=== PATIENT | male | born 1985 | race Caucasian/White ===

== ENCOUNTER 2016-05-23 09:58 | Emergency (ER) | payer BC ==
[2016-05-23] MEDS ORDERED: NITROGLYCERIN 0.4 MG 25 EA TAB SL ONE (10:13)
[2016-05-23] MEDS ORDERED: ASPIRIN TABLET 325 MG TAB PO ONE (10:13)
[2016-05-23] MEDS ORDERED: SODIUM CHLORIDE 0.9% (FLUSH) 10 ML SYG IV PRN (10:13)
--- NOTE | 2016-05-23 10:13 | ED.PDOC ---
History of Present Illness - General Chief Complaint: Cardiovascular Problem Stated Complaint: palpitations Time Seen by Provider: 05/23/16 10:12 Source: patient Exam Limitations: no limitations - History of Present Illness Initial Comments: Mr. Suraj Edge 30 y/o male no chronic medical condition stated that after eating lunch yesterday rested and about to go back to work experienced that he had a fast heartbeat then later had left sided sharp pain with numbness on his left arm and soreness on his shoulders lasting for about several hours and pain on his chest went away but still feels numbness on left arm. Timing/Duration: 24 hours, resolved prior to arrival Severity: moderate Location: other - left side chest Activities at Onset: rest Prior Chest Pain/Cardiac Workup: no prior chest pain, no prior cardiac workup Improving Factors: nothing Worsening Factors: nothing Nitro Today/Relief: no nitro taken today, provided by ED Aspirin Treatment Today: no aspirin today, 325 mg x 1 Associated Symptoms: chest pain, other - numbness left arm Allergies/Adverse Reactions: Allergies NO KNOWN ALLERGY Allergy (Unverified 06/21/13 09:00) Home Medications: Ambulatory Orders Magnesium Oxide (mg Supplement [Mag-200] 200 mg PO BID #60 tab 05/23/16 Review of Systems - Review of Systems Constitutional: States: no symptoms reported EENTM: States: no symptoms reported Respiratory: States: no symptoms reported Cardiology: States: see HPI Gastrointestinal/Abdominal: States: no symptoms reported Genitourinary: States: no symptoms reported Musculoskeletal: States: no symptoms reported Skin: States: no symptoms reported Neurological: States: emotional problems - stated lots of stress family and job Hematologic/Lymphatic: States: no symptoms reported Past Medical History (General) - Patient Medical History Hx Congestive Heart Failure: No Hx Diabetes: No Surgical History: no surgical history - Vaccination History Hx Influenza Vaccination: No - Social History Hx Tobacco Use: No Hx Alcohol Use: No Hx Substance Use: No - Activities of Daily Living Patient Lives Alone: Yes - Family Medical History - Family History Father Family History: Unknown Living Status: Unknown Hx Cardiac Disease: Yes - dad -mi age51 Physical Exam - Physical Exam General Appearance: Alert, Anxious, No apparent distress Eyes, Ears, Nose, Throat Exam: PERRL/EOMI, normal ENT inspection, TMs normal Neck: non-tender, full range of motion, supple, normal inspection Respiratory: chest non-tender, lungs clear, normal breath sounds Cardiovascular/Chest: normal peripheral pulses, regular rate, rhythm, no edema, no gallop, no JVD, no murmur, tachycardia - heart rate 100 Peripheral Pulses: radial,right: 2+, radial,left: 2+ Gastrointestinal/Abdominal: normal bowel sounds, non tender, soft, no organomegaly, no pulsatile mass Extremity: normal range of motion, non-tender, normal inspection, no calf tenderness Skin Exam: normal color, warm/dry Lymphatic: no adenopathy Progress - Results/Orders Results/Orders: 05/23/16 10:13 Telemetry .ONCE Sodium Chloride 0.9% (Flush) [Saline Flush Syringe] 10 ml IV PRN PRN EKG Stat Pulse Ox Stat 05/23/16 10:15 EKG STAT Laboratory Results WBC 5.8 K/mm3 (4.8-10.8) 05/23/16 10:30 RBC 5.52 M/mm3 (4.70-6.10) 05/23/16 10:30 Hgb 17.7 gm/dL (14.0-18.0) 05/23/16 10:30 Hct 51.8 % (42.0-52.0) 05/23/16 10:30 MCV 94.0 fl (80.0-94.0) 05/23/16 10:30 MCH 32.1 pg (27.0-31.0) H 05/23/16 10:30 MCHC 34.2 g/dL (33.0-37.0) 05/23/16 10:30 RDW 13.3 % (11.5-14.5) 05/23/16 10:30 Plt Count 223 K/mm3 (130-400) 05/23/16 10:30 MPV 8.1 fl (7.40-10.4) 05/23/16 10:30 Absolute Neuts (auto) 3.40 K/uL (1.8-6.8) 05/23/16 10:30 Absolute Lymphs (auto) 1.60 K/uL (1.0-3.4) 05/23/16 10:30 Absolute Monos (auto) 0.40 K/uL (0.2-0.8) 05/23/16 10:30 Absolute Eos (auto) 0.30 K/uL (0.0-0.4) 05/23/16 10:30 Absolute Basos (auto) 0.10 K/uL (0.0-0.1) 05/23/16 10:30 Neutrophils % 58.7 % (42.0-78.0) 05/23/16 10:30 Lymphocytes % 27.5 % (20.0-50.0) 05/23/16 10:30 Monocytes % 6.8 % (2.0-9.0) 05/23/16 10:30 Eosinophils % 5.8 % (1.0-5.0) H 05/23/16 10:30 Basophils % 1.2 % (0.0-2.0) 05/23/16 10:30 PT 11.1 SECONDS (9.4-12.5) 05/23/16 10:30 INR 0.980 05/23/16 10:30 PTT (SP) 30.1 SECONDS (25.1-36.5) 05/23/16 10:30 D-Dimer, Quantitative < 200 ng/mL (0-230) 05/23/16 10:30 Sodium 135 mmol/L (135-145) 05/23/16 10:30 Potassium 3.7 mmol/L (3.6-5.0) 05/23/16 10:30 Chloride 99 mmol/L (101-111) L 05/23/16 10:30 Carbon Dioxide 27 mmol/L (21-31) 05/23/16 10:30 Anion Gap 12.7 (12-18) 05/23/16 10:30 BUN 11 mg/dL (7-18) 05/23/16 10:30 Creatinine 0.89 mg/dL (0.6-1.3) 05/23/16 10:30 BUN/Creatinine Ratio 12.4 (10-20) 05/23/16 10:30 Random Glucose 100 mg/dL (70-105) 05/23/16 10:30 Serum Osmolality 269.6 mOsm/L (275-295) L 05/23/16 10:30 Calcium 9.4 mg/dL (8.4-10.2) 05/23/16 10:30 Magnesium 1.7 mg/dL (1.8-2.5) L 05/23/16 10:30 Total Bilirubin 1.7 mg/dL (0.2-1.0) H 05/23/16 10:30 Direct Bilirubin 0.2 mg/dL (0-0.2) 05/23/16 10:30 Indirect Bilirubin 1.5 mg/dL (0.2-0.8) H 05/23/16 10:30 AST 37 IU/L (10-42) 05/23/16 10:30 ALT 40 IU/L (10-60) 05/23/16 10:30 Alkaline Phosphatase 64 IU/L (42-121) 05/23/16 10:30 Creatine Kinase 147 IU/L (38-174) 05/23/16 10:30 CK-MB (CK-2) 3.4 ng/mL (0.0-4.4) 05/23/16 10:30 CK-MB (CK-2) % Not Reportable 05/23/16 10:30 Troponin I < 0.02 ng/mL (0.01-0.05) 05/23/16 11:16 B-Natriuretic Peptide 12.9 pg/ml (0-100) 05/23/16 10:30 Serum Total Protein 7.7 gm/dL (6.4-8.2) 05/23/16 10:30 Albumin 4.2 g/dl (3.2-5.5) 05/23/16 10:30 Globulin Cancelled 05/23/16 10:30 Albumin/Globulin Ratio Cancelled 05/23/16 10:30 TSH 2.13 uIU/mL (0.34-5.60) 05/23/16 10:30 Urine Color Yellow (Yellow) 05/23/16 11:20 Urine Appearance Clear (Clear) 05/23/16 11:20 Urine pH 7.5 (4.5-7.8) 05/23/16 11:20 Ur Specific [place] 1.015 (1.005-1.030) 05/23/16 11:20 Urine Protein Negative mg/dL 05/23/16 11:20 Urine Glucose (UA) Negative mg/dL (Negative) 05/23/16 11:20 Urine Ketones Negative mg/dL (NEGATIVE) 05/23/16 11:20 Urine Blood Trace-intact (Negative) H 05/23/16 11:20 Urine Nitrite Negative 05/23/16 11:20 Urine Bilirubin Negative (NEGATIVE) 05/23/16 11:20 Urine Urobilinogen 1.0 mg/dL (0.2-1.0) 05/23/16 11:20 Ur Leukocyte Esterase Trace (Negative) H 05/23/16 11:20 Urine RBC 1-3 /hpf 05/23/16 11:20 Urine WBC 3-5 /hpf H 05/23/16 11:20 Ur Epithelial Cells 0 /hpf 05/23/16 11:20 Urine Bacteria Rare 05/23/16 11:20 Urine Opiates Screen Negative ng/mL (2000) 05/23/16 10:15 Urine Barbiturates Negative ng/mL (200) 05/23/16 10:15 Ur Phencyclidine Scrn Negative ng/mL (25) 05/23/16 10:15 U Amphetamin/Meth Scrn Negative ng/mL (1000) 05/23/16 10:15 U Benzodiazepines Scrn Negative ng/mL (200) 05/23/16 10:15 U Cocaine Metab Screen Negative ng/mL (300) 05/23/16 10:15 U Cannabinoids Screen Negative ng/mL (50) 05/23/16 10:15 Repeat troponin-normal - EKG/XRAY/CT EKG: Sinus - heart rate -76, RBBB, no ST T wave changes Comments: incomplete XRAY: chest - no acute abnormalities noted Departure - Departure Clinical Impression: Numbness and tingling in left arm, Heart palpitations, Hypomagnesemia Time of Disposition: 12:53 Disposition: Discharge to Home or Self Care Condition: Good Departure Forms: ED Discharge - Pt. Copy, Patient Portal Self Enrollment Instructions: DI for Palpitations, DI for Chest Pain Diet: low fat, low cholesterol, low salt diet Referrals: Melisa Perez NP [Primary Care Provider] - 1-2 Weeks Prescriptions: Magnesium Oxide (mg Supplement [Mag-200] 200 mg PO BID #60 tab Home Medications: Ambulatory Orders Magnesium Oxide (mg Supplement [Mag-200] 200 mg PO BID #60 tab 05/23/16
[2016-05-23 10:17] VITALS: TEMP 98.2
--- NOTE | 2016-05-23 10:32 | RAD ---
EXAM DESCRIPTION: Chest,1 View CLINICAL HISTORY: 30 years Male, chest pain, acute onset IMPRESSION: Portable chest radiograph reveals clear lungs. The mediastinum is unremarkable. No pleural effusion or pneumothorax. Electronically signed by: Eliot Cruz MD 05/23/2016 10:31 AM CDT
[2016-05-23] MEDS ORDERED: LACTATED RINGERS 1,000 ML IVS ONE (11:11)
[2016-05-23 13:09] VITALS: BP 149/85; O2SAT 96
== END 2016-05-23 13:08 | disposition home or self-care (01) ==
LOC: ER 09:58
DX: E83.42 Hypomagnesemia (principal); R00.2 Palpitations; R20.0 Anesthesia of skin; I45.10 Unspecified right bundle-branch block; Z82.49 Family history of ischemic heart disease and other diseases of the circulatory system
CPT/HCPCS: 36415; 71010; 80048; 80076; 80307; 81001; 82550; 82553; 83880; 84443; 84484; 85025; 85379; 85610; 85730; 93005; J7120